=== PATIENT | female | born 1990 | race African-American/Black ===

== ENCOUNTER 2025-06-06 12:18 | Emergency (ER) | payer OTHER ==
[~2025-06-06] VITALS: Ht 172.7 cm; Wt 84.4 kg
[~2025-06-06 12:18] MED LIST: PIPERACILLIN/TAZOBACTAM SOD 3.375 GM in DEXTROSE 5% (D5W) ADV/MINI-BAG 50 ML IV SCH
[2025-06-06] MEDS ORDERED: PRIL20TA2 PO (12:33)
[2025-06-06 13:24] VITALS: TEMP 96.8
[2025-06-06 14:22] LABS: BASO # 0.0 10^3/uL (0.0-0.2); BASO % 0.5 % (0.0-1.0); EOS # 0.0 10^3/uL (0.0-0.5); EOS % 0.1 % (0.0-3.0); LYMPH # 0.6 10^3/uL (1.5-5.0); LYMPH % 7.7 % (24.0-44.0); MONO # 0.5 10^3/uL (0.0-0.8); MONO % 5.6 % (2.0-8.0); NEUTROPHILS # 7.1 10^3/uL (1.5-8.5); NEUTROPHILS % 85.7 % (36.0-66.0); PLATELET COUNT, AUTOMATED 264 10^3/uL (150-450)
[2025-06-06 14:26] LABS: KETONE, URINE AUTO RFX NEGATIVE (NEGATIVE); LEUKOCYTE ESTERASE UR AUTO RFX NEGATIVE (NEGATIVE); MUCUS, URINE RFX SMALL (NEGATIVE); NITRITE, URINE AUTO RFX NEGATIVE (NEGATIVE); RBC, URINE AUTO RFX 5 /HPF (0-3); SQUAM EPITHELIAL CELL UR AURFX 3 /HPF (0-6); WBC, URINE AUTO RFX 0 /HPF (0-3)
[2025-06-06 14:48] LABS: ALT/SGPT 172 U/L (7.0-40); AST/SGOT 304 U/L (<34); CALCIUM LEVEL 8.6 MG/DL (8.5-10.1); CARBON DIOXIDE LEVEL 24 MMOL/L (20-31); CHLORIDE LEVEL 107 MMOL/L (98-107); CREATININE FOR GFR 0.60 MG/DL (0.55-1.30); GLOMERULAR FILTRATION RATE > 90.0 (>60); POTASSIUM SERUM 4.2 MMOL/L (3.5-5.1); SODIUM LEVEL 140 MMOL/L (136-145)
[2025-06-06 14:51] LABS: HCG, SERUM QUALITATIVE NEGATIVE (NEGATIVE)
[2025-06-06] MEDS ORDERED: ISOVUE-370 76% 100 ML VIAL As Ordered ONE (15:20)
[2025-06-06] MEDS ORDERED: HOME MED LIST COMPLETE! XX SCH (18:05)
[2025-06-06] MEDS: KETOROLAC 30 MG/ML 1 ML VIAL IV ONE (18:25)
[2025-06-06] MEDS: ONDANSETRON 4MG/2ML VIAL IV ONE (18:28)
[2025-06-06] MEDS: PIPERACILLIN/TAZOBACTAM SOD 3.375 GM in DEXTROSE 5% (D5W) ADV/MINI-BAG 50 ML IV ONE (18:29)
[2025-06-06] MEDS ORDERED: ACETAMINOPHEN 325 MG TAB PO PRN (18:40)
[2025-06-06] MEDS ORDERED: HYDROMORPHONE HCL 0.5 MG/0.5 ML SYRINGE IV PRN (18:40)
[2025-06-06] MEDS ORDERED: ONDANSETRON 4MG/2ML VIAL IV PRN (18:40)
[2025-06-06] MEDS: NS (Normal Saline) 0.9% 1,000 ML IV SCH (19:42)
[2025-06-07] MEDS: PIPERACILLIN/TAZOBACTAM SOD 3.375 GM in DEXTROSE 5% (D5W) ADV/MINI-BAG 50 ML IV SCH (01:07)
[2025-06-07 08:52] LABS: BASO # 0.0 10^3/uL (0.0-0.2); BASO % 0.5 % (0.0-1.0); EOS # 0.2 10^3/uL (0.0-0.5); EOS % 2.6 % (0.0-3.0); LYMPH # 1.2 10^3/uL (1.5-5.0); LYMPH % 20.2 % (24.0-44.0); MONO # 0.5 10^3/uL (0.0-0.8); MONO % 8.7 % (2.0-8.0); NEUTROPHILS # 3.9 10^3/uL (1.5-8.5); NEUTROPHILS % 67.7 % (36.0-66.0)
[2025-06-07] MEDS: ENOXAPARIN 40 MG/0.4 ML SYRINGE (J1650 PER 10MG) SC SCH (09:21)
[2025-06-07 09:36] LABS: ALT/SGPT 299 U/L (7.0-40); AST/SGOT 274 U/L (<34); CALCIUM LEVEL 7.8 MG/DL (8.5-10.1); CARBON DIOXIDE LEVEL 22 MMOL/L (20-31); CHLORIDE LEVEL 108 MMOL/L (98-107); CREATININE FOR GFR 0.63 MG/DL (0.55-1.30); GLOMERULAR FILTRATION RATE > 90.0 (>60); MAGNESIUM LEVEL 2.0 MG/DL (1.8-2.4); POTASSIUM SERUM 3.6 MMOL/L (3.5-5.1); SODIUM LEVEL 140 MMOL/L (136-145)
[2025-06-07] MEDS ORDERED: PERC5TAB12 PO (13:13)
[2025-06-07 14:30] VITALS: BP 116/76; O2SAT 100
== END 2025-06-07 14:40 | disposition home or self-care (01) ==
LOC: M ED 20:49
DX: K81.9 Cholecystitis, unspecified (principal); R74.01 Elevation of levels of liver transaminase levels; K21.9 Gastro-esophageal reflux disease without esophagitis
CPT/HCPCS: 74177; 74181; 76705; 80048; 80053; 80076; 81001; 83605; 83690; 83735; 84145; 84703; 85025; 96365; 96366; 96368; 99285; J1885; J2405; J2543; Q9967